=== PATIENT | female | born 1990 ===

== ENCOUNTER → 2024-05-05 | Outpatient (CLI) | payer OTHER | END | disposition home or self-care (01) | LOC: LAB 11:54 → LAB SHORT 11:54 | DX: O09.523 Supervision of elderly multigravida, third trimester (principal); Z3A.36 36 weeks gestation of pregnancy | CPT/HCPCS: 87081; 87150 ==

== ENCOUNTER 2024-06-03 06:34 | Inpatient (IN) | payer OTHER ==
[~2024-06-03] VITALS: Ht 160 cm; Wt 107.5 kg
[2024-06-03] VITALS (24 sets, daily range): BP systolic 103–165; BP diastolic 57–103
[2024-06-03] MEDS ORDERED: CeFAZolin Sodium 3,000 MG in NS 100 ML IV SCH (07:10)
[2024-06-03] MEDS ORDERED: Metoclopramide HCl 5MG / ML 2ML Vial IV SCH (07:10)
[2024-06-03] MEDS ORDERED: Lactated Ringer's 1,000 ML IV SCH (07:10)
[2024-06-03] MEDS ORDERED: Azithromycin 500 MG in NS 250 ML IV ONE (07:10)
[2024-06-03] MEDS ORDERED: Citric Acid/Sodium Citrate 30 ML BTL PO SCH (07:10)
[2024-06-03] MEDS ORDERED: VITAMIN D5000 UNIT PO (07:34)
[2024-06-03] MEDS ORDERED: PRENATAL 19 TA1 EAC3 PO (07:34)
[2024-06-03] MEDS ORDERED: FERSU300 PO (07:34)
[2024-06-03] MEDS ORDERED: FISH OIL 1,4001 EAC2 (07:35)
[2024-06-03] MEDS ORDERED: CHROMIUM400 MCG PO (07:35)
[2024-06-03] MEDS ORDERED: INOSITOL PO (07:36)
[2024-06-03] MEDS ORDERED: Oxytocin 10 Unit / ML Vial ONE (07:43)
[2024-06-03 08:12] LABS: BASOPHILS ABSOLUTE AUTO 0.02 K/mm3 (0.00-0.23); BASOPHILS PERCENT AUTO 0 % (0-2); EOSINOPHILS ABSOLUTE AUTO 0.08 K/mm3 (0.00-0.68); EOSINOPHILS PERCENT AUTO 1 % (0-6); Hematocrit 34.3 % (33.0-51.0); Hemoglobin 11.8 g/dL (11.5-16.0); IMMATURE GRAN ABSOLUTE AUTO 0.02 K/mm3 (0.00-0.10); IMMATURE GRAN PERCENT AUTO 0 % (0-1); LYMPHOCYTES ABSOLUTE AUTO 1.85 K/mm3 (0.84-5.20); LYMPHOCYTES PERCENT AUTO 31 % (21-46); MONOCYTES PERCENT AUTO 10 % (4-13); Mean Corpuscular HGB 28.4 pg (26.0-34.0); Mean Corpuscular HGB Conc 34.4 g/dL (31.5-36.5); Mean Corpuscular Volume 83 fL (80-100); Mean Platelet Volume 10.8 fL (9.1-12.4); NEUTROPHILS ABSOLUTE AUTO 3.45 K/mm3 (1.96-9.15); NEUTROPHILS PERCENT AUTO 57 % (41-73); Platelet Count 255 K/mm3 (150-400); RDW Coefficient Variation 15.1 % (11.7-14.2); RDW Standard Deviation 45.1 fL (35.1-46.3); Red Blood Cell Count 4.15 M/mm3 (3.80-5.20); White Blood Cell Count 6.02 K/mm3 (4.00-11.30)
[2024-06-03 08:25] LABS: Albumin, Blood 2.4 g/dL (3.4-5.0); Albumin/Globulin Ratio 0.6 (0.8-1.8); Bilirubin, Total 0.5 mg/dL (0.1-1.0); Bun/Creatinine Ratio 18.9 (12.0-20.0); Calcium, Blood 9.1 mg/dL (8.5-10.1); Creatinine, Blood 0.58 mg/dL (0.40-1.00); Globulin, Blood 4.2 g/dL (2.2-4.0); Potassium, Blood 3.6 mmol/L (3.5-5.5); Total Protein, Blood 6.6 g/dL (6.4-8.2)
[2024-06-03 09:41] LABS: PCO2 Cord - Venous 45.1 mmHg (40-50); PO2 Cord - Venous 27.9 mmHg (28-32); pH Umbilical Cord - Venous 7.36 (7.26-7.35)
[2024-06-03] MEDS ORDERED: Ondansetron HCl 2 MG / ML 2ML Vial IV PRN (10:50)
[2024-06-03] MEDS ORDERED: FentaNYL Citrate 50 MCG/ML 2 ML Injection IV PRN (10:50)
[2024-06-03] MEDS ORDERED: ePHEDrine Sulfate 50 MG/ML 1ML Injection IV PRN (10:55)
[2024-06-03] MEDS ORDERED: Lanolin Cream TOP PRN (11:00)
[2024-06-03] MEDS ORDERED: Acetaminophen 500 MG Tab PO PRN (11:00)
[2024-06-03] MEDS ORDERED: OxyCODONE HCL 5 MG TAB PO PRN (11:00)
[2024-06-03] MEDS ORDERED: Guaifenesin/Dextromethorphan Syrup 5 ML UDC PO PRN (11:00)
[2024-06-03] MEDS ORDERED: Magnesium Hydroxide Conc 10 ML UDC PO PRN (11:00)
[2024-06-03] MEDS ORDERED: Ketorolac Tromethamine 30mg Vial IV PRN (11:00)
[2024-06-03] MEDS ORDERED: HydrOXYzine Pamoate 25 MG Cap PO PRN (11:05)
[2024-06-03] MEDS ORDERED: OxyCODONE 5 mg/Acetamin 325 mg TABLET PO PRN (11:05)
[2024-06-03] MEDS ORDERED: Simethicone 80 MG Chew PO PRN (11:10)
--- NOTE | 2024-06-03 11:49 | NUR ---
06/03/24 1149 Ana Salcedo VIABLE MALE DELIVERED AT 0924 WEIGHT [id number] GMS HEAD 15 IN CHEST 14 3/4 IN LENGTH 22.5 IN
[2024-06-03] MEDS ORDERED: Ketorolac Tromethamine 30mg Vial IV SCH (12:00)
[2024-06-03] MEDS ORDERED: Ibuprofen 400 MG Tab PO SCH (16:00)
--- NOTE | 2024-06-03 19:08 | NUR ---
agree with assessment, lisandro rnc
[2024-06-03] MEDS ORDERED: Docusate Sodium 100 MG Cap PO SCH (21:00)
[2024-06-04 04:00] VITALS: BP 129/77
[2024-06-04 05:49] LABS: BASOPHILS ABSOLUTE AUTO 0.03 K/mm3 (0.00-0.23); BASOPHILS PERCENT AUTO 0 % (0-2); EOSINOPHILS ABSOLUTE AUTO 0.12 K/mm3 (0.00-0.68); EOSINOPHILS PERCENT AUTO 1 % (0-6); Hematocrit 30.1 % (33.0-51.0); Hemoglobin 10.3 g/dL (11.5-16.0); IMMATURE GRAN ABSOLUTE AUTO 0.03 K/mm3 (0.00-0.10); IMMATURE GRAN PERCENT AUTO 0 % (0-1); LYMPHOCYTES ABSOLUTE AUTO 1.59 K/mm3 (0.84-5.20); LYMPHOCYTES PERCENT AUTO 16 % (21-46); MONOCYTES ABSOLUTE AUTO 0.66 K/mm3 (0.16-1.47); MONOCYTES PERCENT AUTO 7 % (4-13); Mean Corpuscular HGB Conc 34.2 g/dL (31.5-36.5); Mean Corpuscular Volume 85 fL (80-100); Mean Platelet Volume 10.4 fL (9.1-12.4); NEUTROPHILS ABSOLUTE AUTO 7.42 K/mm3 (1.96-9.15); NEUTROPHILS PERCENT AUTO 75 % (41-73); Platelet Count 205 K/mm3 (150-400); RDW Coefficient Variation 15.4 % (11.7-14.2); RDW Standard Deviation 47.6 fL (35.1-46.3); Red Blood Cell Count 3.55 M/mm3 (3.80-5.20); White Blood Cell Count 9.85 K/mm3 (4.00-11.30)
[2024-06-04 08:02] VITALS: BP 134/86
[2024-06-04] MEDS ORDERED: Prenatal Vit/FE Fumarate/FA 1 Tab PO SCH (09:00)
[2024-06-04 11:03] VITALS: BP 142/92
[2024-06-04 16:09] VITALS: BP 137/84
[2024-06-04 20:28] VITALS: BP 135/79
[2024-06-04 23:28] VITALS: BP 139/74
[2024-06-05 05:55] VITALS: BP 129/80
[2024-06-05 08:21] VITALS: BP 134/73
[2024-06-05] MEDS ORDERED: IBUP800 PO (11:35)
[2024-06-05 13:18] VITALS: BP 132/85
== END 2024-06-05 13:40 | disposition home or self-care (01) | DRG 788 ==
LOC: OBS 06:34 → BC 06:48 → OBS 06:58 → BC 07:00
PROVIDERS: ADMIT Family Medicine
PROC: 0TBB0ZZ Excision of Bladder, Open Approach (ICD-10-PCS; 2024-06-03)
PROC: 10D00Z1 Extraction of Products of Conception, Low, Open Approach (ICD-10-PCS; principal; 2024-06-03 08:45)
DX: O34.211 Maternal care for low transverse scar from previous cesarean delivery (principal); Z3A.39 39 weeks gestation of pregnancy; Z37.0 Single live birth; N32.89 Other specified disorders of bladder; O99.892 Other specified diseases and conditions complicating childbirth; O24.429 Gestational diabetes mellitus in childbirth, unspecified control; O36.63X0 Maternal care for excessive fetal growth, third trimester, not applicable or unspecified
CPT/HCPCS: 36415; 80053; 82803; 85025; A9270; J0690; J1885; J2590; J2765; J7120